=== PATIENT | male | born 2000 | race Caucasian/White ===

== ENCOUNTER 2024-10-15 01:08 | Emergency (ER) | payer BC ==
[~2024-10-15] VITALS: Ht 177.8 cm; Wt 92.0 kg
[2024-10-15] MEDS ORDERED: DOXY-354 PO (01:43)
[2024-10-15] MEDS: DOXYCYCLINE HYCLATE 100 MG TABLET PO ONE (02:33)
[2024-10-15 02:44] VITALS: BP 135/88; PULSE 67; RESP 17; TEMP 98.3; O2SAT 97
== END 2024-10-15 02:54 | disposition home or self-care (01) ==
LOC: EMS 01:08
DX: A56.2 Chlamydial infection of genitourinary tract, unspecified (principal); H91.91 Unspecified hearing loss, right ear; Z11.8 Encounter for screening for other infectious and parasitic diseases
CPT/HCPCS: 99283